=== PATIENT | female | born 1990 | race African-American/Black ===

== ENCOUNTER 2020-05-14 11:06 | Emergency (ER) | payer OTHER ==
[~2020-05-14] VITALS: Ht 167.6 cm; Wt 48.5 kg
[~2020-05-14 11:06] MED LIST: NOHOMEMEDICATIONS
[2020-05-14] MEDS ORDERED: BUTALB-APAP-CA1 EACH PO (13:17)
[2020-05-14 13:55] VITALS: BP 105/62
== END 2020-05-14 13:55 | disposition home or self-care (01) ==
LOC: ER 11:06
DX: U07.1 COVID-19 (principal); H57.12 Ocular pain, left eye; H92.02 Otalgia, left ear